=== PATIENT | female | born 1965 | race Caucasian/White ===

== ENCOUNTER 2024-06-13 12:43 | Day surgery (SDC) | payer OTHER ==
[~2024-06-13] VITALS: Ht 147.3 cm; Wt 95.9 kg
[~2024-06-13 12:43] MED LIST: ASPIRIN325 MG PO; CALCIUM 600 +1 EACH PO; CEFAZOLIN SODIUM 2 GM/20 ML SYR IV SCH; CELEBREX200 MG PO; CLARITIN10 MG PO; CRESTOR40 MG NG; ELMIRON100 MG PO; IBLOOD GLUCOSE TEST STRIP 1 EA TEST VI PRN; IBUPROFEN600 MG PO; LACTATED RINGER'S 1,000 ML IV SCH; LEXAPRO20 MG PO; LIDOCAINE HCL 1% 5 ML SDV INJ ONE; LOW DOSE ASPIRI81 MG PO; MIDAZOLAM HCL 5 MG/5 ML VIAL IV PRN; MULTIVITAMINS1 EAC7 PO; NAPROXEN500 MG PO; PERCOCET 7.5-31 EACH PO; VITAMIN B-12500 MC1 PO; VITAMIN C500 M1 PO; VITAMIN D2000 UNI1 PO; fentaNYL citrate 100 MCG/2 ML VIAL IV PRN
[2024-06-13 13:09] VITALS: BP 115/56
[2024-06-13] MEDS ORDERED: VITAMIN D250 MCG PO (13:14)
[2024-06-13] MEDS ORDERED: EXCEDRIN EXTRA1 EAC1 PO (13:14)
[2024-06-13] MEDS ORDERED: IRON240 MG PO (13:14)
[2024-06-13] MEDS ORDERED: fentaNYL citrate 100 MCG/2 ML VIAL ONE (15:03)
[2024-06-13] MEDS ORDERED: MIDAZOLAM HCL 5 MG/5 ML VIAL ONE (15:03)
--- NOTE | 2024-06-13 15:48 | NUR ---
06/13/24 1548 Karen Cruz 1546-PT TO PACU IN LL POSITION. EYES OPEN BUT PATIENT REMAINS DROWSY. BREATHING EASY AND UNLABORED. SPO2 >95% ON 3 L O2 VIA NC. PT DENIES PAIN AND NAUSEA. PT ENCOURAGED TO PASS GAS.
[2024-06-13 16:31] VITALS: BP 115/67
--- NOTE | 2024-06-13 19:57 | OR ---
[facility] [address], [place] [address] Signed DATE OF OPERATION: 06/13/2024 SURGEON: Petra Ricardo MD Assistant Professor Nurse Education Surgeon : Darnell Ricardo MD PREOPERATIVE DIAGNOSIS: Colon screening. POSTOPERATIVE DIAGNOSIS: Normal colon to cecum. PROCEDURE: Total colonoscopy to cecum. ANESTHESIA: Intravenous sedation; fentanyl 150 mcg and Versed 10 mg. INDICATION: This 58-year-old white woman is a patient of [facility]. She was referred for screening colonoscopy. She has never had colonoscopy or colon evaluation in the past. She has no current symptoms of bleeding, diarrhea or constipation. She does have a family history of colon cancer in her maternal aunt and maternal cousin in their 40s. She is admitted at this time to undergo screening colonoscopy. She understands the risk of bleeding, infection, and perforation. FINDINGS: The prep was good. Complete colonoscopy was undertaken of cecum without question. Appendiceal orifice was easily identified and normal as was the ileocecal valve. She had no polyps, diverticular formation, colitis, or cancer. DESCRIPTION OF PROCEDURE: The patient was brought to the endoscopy suite and placed in lateral decubitus position, given intravenous sedation to the point of slurred speech and nystagmus. Digital rectal examination was normal. Olympus video colonoscope was passed in the rectum and manipulated throughout the colon. Ultimately cecum was fully intubated. The ileocecal valve and appendiceal orifice were identified and photographed. Irrigation was undertaken. The scope carefully withdrawn. Examination throughout showed no sign of polyps, diverticular formation, colitis, or cancer. Retroflexed view of the rectum was normal as well. Scope was removed. The patient was taken to recovery room in good condition. Electronically Signed By: PETRA RICARDO MD 06/13/241956 PATIENT NAME: RITIKA DILLON OPERATIVE REPORT DATE OF : 63 REPORT #: [id number] PHYSICIAN: PETRA RICARDO MD PCP: GONZALEZ PIZANO PAC REPORT IS CONFIDENTIAL AND NOT TO BE RELEASED WITHOUT AUTHORIZATION [facility] [address], [place] [address] Signed CONCLUSION DIAGNOSES: 1. Normal colon to cecum. 2. Intermediate family history of colon cancer (maternal aunt, maternal cousin). PLAN: Would recommend repeat colonoscopy in 5 to 7 years based on family history, sooner if symptoms should develop. She will return to the ongoing care of R[facility] Queen. MD KAMERON Sal/VONNIE /[id number] cc: Gonzalez Pizano PA-C CC: Mateo Barber MD Copies: ~ Electronically Signed By: PETRA RICARDO MD 06/13/241956 PATIENT NAME: RITIKA DILLON OPERATIVE REPORT DATE OF : 63 REPORT #: [id number] PHYSICIAN: PETRA RICARDO MD PCP: GONZALEZ PIZANO PAC REPORT IS CONFIDENTIAL AND NOT TO BE RELEASED WITHOUT AUTHORIZATION
== END 2024-06-13 16:40 | disposition home or self-care (01) ==
LOC: OPS 12:43 → DS 13:00 → OPS 14:00
PROVIDERS: ATTEND Surgery
PROC: 0DJD8ZZ Inspection of Lower Intestinal Tract, Via Natural or Artificial Opening Endoscopic (ICD-10-PCS; principal; 2024-06-13 14:00)
DX: Z12.11 Encounter for screening for malignant neoplasm of colon (principal); G47.30 Sleep apnea, unspecified; Z79.899 Other long term (current) drug therapy; Z80.0 Family history of malignant neoplasm of digestive organs
CPT/HCPCS: 99153; G0500; J0690; J2250; J3010; J7121